=== PATIENT | female | born 1950 | race Two or more races ===

== ENCOUNTER → 2016-05-21 | Outpatient (CLI) | payer OTHER | LOC: CIMAGING 07:19 | DX: Z12.31 Encounter for screening mammogram for malignant neoplasm of breast (principal) | CPT/HCPCS: G0202 ==

== ENCOUNTER → 2017-06-10 | Outpatient (CLI) | payer OTHER | LOC: CIMAGING 14:57 | PROVIDERS: ATTEND Family Medicine | DX: Z12.31 Encounter for screening mammogram for malignant neoplasm of breast (principal) ==

== ENCOUNTER → 2018-07-02 | Outpatient (CLI) | payer OTHER | LOC: CIMAGING 07:20 | PROVIDERS: ATTEND Family Medicine | DX: Z12.31 Encounter for screening mammogram for malignant neoplasm of breast (principal) ==